=== PATIENT | female | born 1955 | race Caucasian/White ===

== ENCOUNTER → 2019-10-21 11:44 | Outpatient (CLI) | payer OTHER, SELFPAY ==
--- NOTE | 2019-10-21 | DI.MG.S_ITS ---
BILATERAL DIGITAL SCREENING MAMMOGRAM 3D/2D WITH CAD: 10/21/2019 CLINICAL: Routine screening. Comparison is made to exams dated: 10/01/2018 mammogram, 09/19/2017 mammogram, and 09/17/2015 mammogram - [facility]. The tissue of both breasts is heterogeneously dense. This may lower the sensitivity of mammography. Current study was also evaluated with a Computer Aided Detection (CAD) system. There are benign calcifications in the right breast. No significant masses, calcifications, or other findings are seen in either breast. There has been no significant interval change. IMPRESSION: There is no mammographic evidence of malignancy. A 1 year screening mammogram is recommended. This exam was interpreted at Station ID: [id number]. NOTE: For mammograms, a report in lay terms will be sent to the patient. Approximately 15% of breast malignancies will not be visualized mammographically. In the management of a palpable breast mass, a negative mammogram must not discourage biopsy of a clinically suspicious lesion. Electronically Signed By: Jonnathan causey/lizzeth:10/22/2019 10:22:04 letter sent: Normal Exam ACR BI-RADS Category 2: Benign Finding(s) 3342F
== END ==
PROVIDERS: Visit Provider Family Medicine
DX: Z12.31 Encounter for screening mammogram for malignant neoplasm of breast (principal)
CPT/HCPCS: 77063; 77067

== ENCOUNTER → 2020-04-03 10:01 | Outpatient (CLI) | payer OTHER, SELFPAY ==
[2020-04-03 22:28] LABS: COVID19 Sendout Not Detected (Not Detect)
== END ==
PROVIDERS: Visit Provider Nurse Practitioner
DX: Z01.812 Encounter for preprocedural laboratory examination (principal)
CPT/HCPCS: 87635

== ENCOUNTER 2020-04-06 06:36 | Day surgery (SDC) | payer OTHER, SELFPAY ==
[2020-04-06 07:10] VITALS: BMI 22.8
[2020-04-06 07:18] VITALS: BP 123/80; PULSE 75; RESP 12; TEMP 36.3; O2SAT 97
[2020-04-06] MEDS: LACTATED RINGERS 1,000 ML 200 ML IV (07:28)
--- NOTE | 2020-04-06 07:42 | P.HP_ITS ---
History of Present Illness History of Present Illness Date Patient Seen: 04/06/20 Time Patient Seen: 07:42 Date of Onset of Symptoms: 04/06/20 Chief complaint: [id number] Narrative: The patient presents for colorectal sreening. The previous colon oscopy 10 years ago at an outside institution which was normal.. No personal or family history of colon cancer. On further history denies any recent gastrointestinal symptoms. No nausea, vomiting, abdominal pain, loss of appetite, unexplained weight loss, change in bowel habits, diarrhea, constipation, melena, hematochezia, or bright red blood per rectum. 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 (Acute) Bee sting allergy (Acute) Surgical History S/P cholecystectomy (Acute) Family & Social History Social History: household members spouse Tobacco & Substance use: Smoking Status Never smoker alcohol intake current alcohol intake frequency a few times a week Substance Use Type does not use Meds Home Medications and Allergies Home Medications Medication Instructions Recorded Confirmed Type cetirizine [Zyrtec] 10 mg PO DAILY PRN 04/06/20 04/06/20 History conjugated estrogens [Premarin] 1 applic VAGINAL USEASDIRECTD 04/06/20 04/06/20 History ibuprofen 200 mg PO BID 04/06/20 04/06/20 History Allergies Allergy/AdvReac Type Severity Reaction Status Date / Time Penicillins Allergy Intermediate Rash Verified 04/06/20 07:06 Review of Systems Review of Systems Narrative: A 10 point review of systems is negative except as noted in the HPI Exam Vital Signs (past 8 hours): - 04/06/20 07:18 Temperature 97.4 F L Pulse Rate 75 Respiratory Rate 12 Blood Pressure 123/80 Pulse Oximetry 97 Oxygen Delivery Method Room Air Narrative Exam Narrative: General-no acute distress, well nourished HEENT-moist mucous membranes, no scleral icterus Neck-supple, no lymphadenopathy Chest- non labored respirations, clear to auscultation bilaterally Cardiac-regular rate no peripheral edema Abdomen-soft, nontender, non distended Extremities-warm, well perfused Neurological-alert and oriented, no focal deficits Assessment & Plan Assessment and plan (1) Screening for colon cancer: Status: Acute Assessment & Plan narrative: The patient requires colorectal screening and colonoscopy is recommended. Technical details were discussed. Risks, benefits, alternatives explained. Risks including but not limited to myocardial infarction, aspiration, bleeding, pain, missed lesion, incomplete examination, need for further radiographic studies, colonic perforation, and need for major abdominal surgery were discussed. All questions were answered to their satisfaction, and they are in agreement with this plan. COVID-19 COVID-19 status: Negative Result date/Date tested (Pos, Neg/Pending): 04/03/20
[2020-04-06] MEDS: MIDAZOLAM 5 MG/5 ML VIAL IV ×2 (07:50→08:10)
[2020-04-06] MEDS: fentaNYL 250 MCG/5 ML INJ IV ×2 (07:54→08:05)
--- NOTE | 2020-04-06 08:05 | PM.OP.ENDO ---
Operative Date/Time/Diagnoses Date of procedure: 04/06/20 Time of procedure: 08:05 Pre-op diagnosis: Screening colonoscopy Post-op diagnosis: same Procedure & Clinicians Study performed: Colonoscopy Same procedure as scheduled: Yes Indications: 64-year-old female last colonoscopy 10 years ago presents for routine screening. Surgeon: Zeeshan Hubbard Procedure Notes SCOAP/Timeout: Performed Procedure in detail: Patient placed in left lateral decubitus position. Time out was performed. Procedural sedation was administered with Versed and Fentanyl. A rectal exam demonstrated no external hemorrhoids no internal masses. Colonoscopy scope was placed into the rectum and advanced through the colon to the cecum. The ileocecal valve was identified. The scope was then slowly withdrawn examining colon thoroughly in all directions. The colonoscopy was notable for the following 1. Lipoma within the cecum 2. No masses or polyps 3. Quality of prep excellent 4. Grade 1 internal hemorrhoids Scope withdrawal time: 6 Sedation minutes: 20 Findings: other findings (Lipoma cecum) Specimen(s): none sent Complications: none Impression: Normal colonoscopy Post-procedure Recommendations: Colonscopy in 10 years Disposition: same day surgery
[2020-04-06 08:09] VITALS: BP 112/75; PULSE 84; RESP 15; TEMP 36.4; O2SAT 95
[2020-04-06 08:14] VITALS: BP 120/76; PULSE 79; RESP 19; O2SAT 96
[2020-04-06 08:19] VITALS: BP 105/70; PULSE 76; RESP 15; O2SAT 97
[2020-04-06 08:30] VITALS: BP 109/74; PULSE 70; RESP 18; TEMP 36.6; O2SAT 97
== END 2020-04-06 08:37 | disposition home or self-care (01) ==
PROVIDERS: Referring Provider Surgery; Visit Provider Surgery
PROC: 0DJD8ZZ Inspection of Lower Intestinal Tract, Via Natural or Artificial Opening Endoscopic (ICD-10-PCS; CPT 45378; principal; 2020-04-06 07:45)
DX: Z11.59 Encounter for screening for other viral diseases (principal); K64.0 First degree hemorrhoids; D17.79 Benign lipomatous neoplasm of other sites
CPT/HCPCS: 45378; 99152; J2250; J3010

== ENCOUNTER → 2020-10-22 10:18 | Outpatient (CLI) | payer OTHER, SELFPAY ==
--- NOTE | 2020-10-22 | DI.MG.S_ITS ---
BILATERAL DIGITAL SCREENING MAMMOGRAM 3D/2D WITH CAD: 10/22/2020 CLINICAL: Routine screening. Comparison is made to exams dated: 10/21/2019 mammogram - [facility], 10/01/2018 mammogram, and 09/19/2017 mammogram - [facility]. The tissue of both breasts is heterogeneously dense. This may lower the sensitivity of mammography. Current study was also evaluated with a Computer Aided Detection (CAD) system. There are benign calcifications in the right breast. No significant masses, calcifications, or other findings are seen in either breast. There has been no significant interval change. IMPRESSION: BENIGN There is no mammographic evidence of malignancy. A 1 year screening mammogram is recommended. This exam was interpreted at Station ID: [id number]. NOTE: For mammograms, a report in lay terms will be sent to the patient. Approximately 15% of breast malignancies will not be visualized mammographically. In the management of a palpable breast mass, a negative mammogram must not discourage biopsy of a clinically suspicious lesion. Electronically Signed By: Norman hathaway/lizzeth:10/22/2020 10:44:15 letter sent: Normal Exam ACR BI-RADS Category 2: Benign Finding(s) 3342F
== END ==
PROVIDERS: PCP Family Medicine; Referring Provider Family Medicine; Visit Provider Family Medicine
DX: Z12.31 Encounter for screening mammogram for malignant neoplasm of breast (principal)
CPT/HCPCS: 77063; 77067

== ENCOUNTER → 2021-03-15 11:19 | Outpatient (CLI) | payer OTHER, SELFPAY | PROVIDERS: PCP Family Medicine; Referring Provider Registered Nurse; Visit Provider Registered Nurse | DX: Z13.820 Encounter for screening for osteoporosis (principal); M85.88 Other specified disorders of bone density and structure, other site; Z78.0 Asymptomatic menopausal state | CPT/HCPCS: 77080 ==

== ENCOUNTER → 2021-12-28 16:30 | Outpatient (CLI) | payer MEDICARE, OTHER, SELFPAY ==
--- NOTE | 2021-12-28 | DI.MG.S_ITS ---
BILATERAL DIGITAL SCREENING MAMMOGRAM 3D/2D WITH CAD: 12/28/2021 CLINICAL: Routine screening. Comparison is made to exams dated: 10/22/2020 mammogram, 10/21/2019 mammogram - [facility], 10/01/2018 mammogram, 09/19/2017 mammogram, and 09/17/2015 mammogram - [facility]. The tissue of both breasts is heterogeneously dense. This may lower the sensitivity of mammography. Current study was also evaluated with a Computer Aided Detection (CAD) system. There are benign calcifications in the right breast. No significant masses, calcifications, or other findings are seen in either breast. There has been no significant interval change. IMPRESSION: BENIGN There is no mammographic evidence of malignancy. A 1 year screening mammogram is recommended. This exam was interpreted at Station ID: [id number]. NOTE: For mammograms, a report in lay terms will be sent to the patient. Approximately 15% of breast malignancies will not be visualized mammographically. In the management of a palpable breast mass, a negative mammogram must not discourage biopsy of a clinically suspicious lesion. Electronically Signed By: Ernesto villa/lizzeth:12/29/2021 12:37:20 letter sent: Normal Exam ACR BI-RADS Category 2: Benign Finding(s) 3342F
== END ==
PROVIDERS: PCP Family Medicine; Referring Provider Family Medicine; Visit Provider Family Medicine
DX: Z12.31 Encounter for screening mammogram for malignant neoplasm of breast (principal)
CPT/HCPCS: 77063; 77067

== ENCOUNTER → 2023-01-02 10:23 | Outpatient (CLI) | payer MEDICARE, OTHER, SELFPAY ==
--- NOTE | 2023-01-02 | DI.MG.S_ITS ---
BILATERAL DIGITAL SCREENING MAMMOGRAM 3D/2D WITH CAD: 01/02/2023 CLINICAL: Routine screening. Comparison is made to exams dated: 12/28/2021 mammogram, 10/22/2020 mammogram, 10/21/2019 mammogram - [facility], 10/01/2018 mammogram, and 09/19/2017 mammogram - [facility]. Both breasts are heterogeneously dense, which may obscure small masses (category c / 51-75% glandular tissue). Current study was also evaluated with a Computer Aided Detection (CAD) system. There are benign calcifications in the right breast. No significant masses, calcifications, or other findings are seen in either breast. There has been no significant interval change. IMPRESSION: BENIGN There is no mammographic evidence of malignancy. A 1 year screening mammogram is recommended. Based on the Tyrer Cuzick model (a risk assessment model) the patient's lifetime risk is 9.7% and her 10 year risk is 4.9%. According to the ACR, ACS, and NCCN guidelines, an annual breast MRI exam along with mammogram is recommended if the patient's lifetime risk is 20% or greater. This exam was interpreted at Station ID: [id number]. NOTE: For mammograms, a report in lay terms will be sent to the patient. Approximately 15% of breast malignancies will not be visualized mammographically. In the management of a palpable breast mass, a negative mammogram must not discourage biopsy of a clinically suspicious lesion. Electronically Signed By: Ernesto villa/lizzeth:01/02/2023 10:50:51 letter sent: Normal Exam ACR BI-RADS Category 2: Benign Finding(s) 3342F
== END ==
PROVIDERS: PCP Family Medicine; Referring Provider Family Medicine; Visit Provider Family Medicine
DX: Z12.31 Encounter for screening mammogram for malignant neoplasm of breast (principal)
CPT/HCPCS: 77063; 77067

== ENCOUNTER 2023-10-24 20:13 | Emergency (ER) | payer MEDICARE, OTHER, SELFPAY ==
[2023-10-24 20:27] VITALS: BP 183/88; PULSE 70; RESP 16; TEMP 37.1; O2SAT 99
--- NOTE | 2023-10-24 20:44 | ED.BACK ---
HPI - Back Pain/Injury General Chief Complaint: Back Pain/Injury Stated Complaint: lower back pain with shooting pains and numbness Time Seen by Provider: 10/24/23 20:35 Source: patient History of Present Illness HPI Narrative: Patient is a 67-year-old female. Has had right-sided lower back discomfort with radiculopathy for several weeks. No specific injury. Actually saw Orthopedic surgery this morning for the 1st time. Was prescribed gabapentin. She is taken 2 doses of this. The plan after her visit this morning would be for physical therapy. If she did not improve with physical therapy and medications then there would be discussion about MRI and injections. Patient states that after she got home from this visit she started have increasing pain in her right hip radiating down to the outside of the front of her right leg. No fevers. No urinary symptoms. No change in bowel habits. She has taken Advil for her discomfort up to this point. Related Data Home Medications Medication Instructions Recorded Confirmed cetirizine 10 mg capsule (Zyrtec) 10 mg PO DAILY PRN Allergic 04/06/20 04/06/20 Symptoms conjugated estrogens 0.625 mg/gram 1 applic vaginal USEASDIRECTD 04/06/20 04/06/20 vaginal cream (Premarin) ibuprofen 200 mg capsule 200 mg PO BID 04/06/20 04/06/20 Previous Rx's Medication Instructions Recorded cyclobenzaprine 10 mg tablet 10 mg PO TID PRN muscle spasm #10 10/24/23 tabs hydrocodone 5 mg-acetaminophen 325 1 tab PO Q4-6H PRN pain #10 tabs 10/24/23 mg tablet methylprednisolone 4 mg tablets in See Rx Instructions PO .COMPLEX 10/24/23 a dose pack (Medrol (Fabrizio)) #21 ea Allergies Allergy/AdvReac Type Severity Reaction Status Date / Time Penicillins Allergy Intermediate Rash Verified 04/06/20 07:06 Review of Systems Constitutional Constitutional: Reports system reviewed and no additional complaints, except as documented Musculoskeletal Musculoskeletal: Reports system reviewed and no additional complaints, except as documented Integumentary/Breasts Skin/Breast: Reports system reviewed and no additional complaints, except as documented Neurologic Neurologic: Reports system reviewed and no additional complaints, except as documented Hematologic/Lymphatic On Anticoagulants: No Patient History Medical History Bee sting allergy 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 Surgical History S/P cholecystectomy Social History household members: spouse Smoking Status: Never smoker alcohol intake: current Smoking Status: Never smoker alcohol intake frequency: a few times a week Substance Use Type: does not use Exam Initial Vital Signs Initial Vital Signs: Vital Signs Temperature 98.7 F 10/24/23 20:27 Pulse Rate 70 10/24/23 20:27 Respiratory Rate 16 10/24/23 20:27 Blood Pressure 183/88 H 10/24/23 20:27 Pulse Oximetry 99 10/24/23 20:27 Oxygen Delivery Method Room Air 10/24/23 20:27 HENOH Head: normal to inspection and normocephalic Back/Spine/Pelvis Thoracic/Lumbar Spine: No paraspinal tenderness, No thoracic spinal tenderness and No lumbar spinal tenderness Skin General: no rashes or lesions noted Neuro General: patient alert and patient awake Extrem General: normal to inspection Course Orders Ordered: Discontinued Medications Hydrocodone Bitart/Acetaminophen (Hydrocodone/Acet 5/325 Prepack) 1 bottle MISC DIRECTED ONE Stop: 10/24/23 21:49 Last Admin: 10/24/23 22:02 Dose: 1 bottle Documented By: DOMINIQUE Hydromorphone HCl (Hydromorphone 1 Mg Inj) 1 mg IM NOW ONE Stop: 10/24/23 20:51 Last Admin: 10/24/23 20:57 Dose: 1 mg Documented By: DOMINIQUE Ketorolac Tromethamine (Ketorolac 30 Mg/Ml Vial) 30 mg IM NOW ONE Stop: 10/24/23 20:51 Last Admin: 10/24/23 20:57 Dose: 30 mg Documented By: DOMINIQUE Ondansetron HCl (Ondansetron 4 Mg Odt Prepack) 1 bottle MISC DIRECTED ONE Stop: 10/24/23 21:49 Last Admin: 10/24/23 22:02 Dose: 1 bottle Documented By: DOMINIQUE Prednisone (Prednisone 20 Mg Tablet) 20 mg PO NOW ONE Stop: 10/24/23 20:51 Last Admin: 10/24/23 20:57 Dose: 20 mg Documented By: DOMINIQUE Vital Signs Vital signs: Vital Signs - 8 hr 10/24/23 20:27 10/24/23 22:06 Temperature 98.7 F Pulse Rate 70 73 Respiratory Rate 16 18 Blood Pressure 183/88 H 110/57 L Pulse Oximetry 99 97 Oxygen Delivery Method Room Air Room Air MDM - Back Pain/Injury MDM Narrative Medical decision making narrative: She was very little discomfort with palpation of her lower spine and SI joint however it is with movement that she was getting quite a bit of discomfort. No fevers. No urinary changes or bowel changes. She is under the care of Orthopedic surgery. There has been no new trauma. There was no indication for emergent radiologic studies. She had x-rays earlier today. Will send home with a prescription for pain medication. Put on steroids for the next couple days as well. Will send home with muscle relaxers although I am not convinced that this is a muscle spasm issue in that she was instructed to just stop taking this medication if her symptoms are not improving with it. She did feel somewhat better after medications here in the ER. She was given return precautions. She expressed understanding and agreement. Discharge Plan Departure Patient Disposition: Home Clinical Impression: Low back pain Instructions: DI for Low Back Pain Activity Restrictions/Additional Instructions: Recommend that you continue to follow all of the instructions given to you by the orthopedic surgeon that you saw earlier today. Continue with the gabapentin. Take the pain medication in the muscle relaxers as needed. Take the steroids as directed. Return to emergency department for new symptoms. Prescriptions: New hydrocodone-acetaminophen 5-325 mg tablet 1 tab PO Q4-6H PRN (Reason: pain) Qty: 10 0RF methylprednisolone [Medrol (Fabrizio)] 4 mg tablets,dose pack See Rx Instructions .ROUTE .COMPLEX Qty: 21 0RF Rx Instructions: orally per package directions cyclobenzaprine 10 mg tablet 10 mg PO TID PRN (Reason: muscle spasm) Qty: 10 0RF No Action ibuprofen 200 mg Capsule 200 mg PO BID Premarin 0.625 mg/gram Cream 1 applic VAGINAL USEASDIRECTD Rx Instructions: 1 gm monday and monday Zyrtec 10 mg Capsule 10 mg PO DAILY PRN (Reason: Allergic Symptoms) Referrals: Kathrin Maurice MD [Primary Care Provider] - Stand Alone Forms: Patient Portal/API
[2023-10-24] MEDS: predniSONE 20 MG TABLET PO (20:57)
[2023-10-24] MEDS: HYDROMORPHONE 1 MG INJ IM (20:57)
[2023-10-24] MEDS: KETOROLAC 30 MG/ML VIAL IM (20:57)
[2023-10-24] MEDS: ONDANSETRON 4 MG ODT PREPACK 1 BOTTLE MISC (22:02)
[2023-10-24] MEDS: HYDROCODONE/ACET 5/325 PREPACK 1 BOTTLE MISC (22:02)
[2023-10-24 22:06] VITALS: BP 110/57; PULSE 73; RESP 18; O2SAT 97
== END 2023-10-24 22:08 | disposition home or self-care (01) ==
PROVIDERS: Emergency Provider Emergency Medicine; PCP Family Medicine
DX: M54.50 Low back pain, unspecified (principal)
CPT/HCPCS: 96372; 99283; J1170; J1885

== ENCOUNTER → 2023-10-29 09:08 | Outpatient (CLI) | payer MEDICARE, OTHER, SELFPAY ==
--- NOTE | 2023-10-29 09:09 | DI.MRI.S_ITS ---
PROCEDURE: MR LUMBAR SPINE WO CON INDICATIONS: Radiculopathy, lumbar region TECHNIQUE: Noncontrast sagittal T1 spin echo and T2 fast echo, sagittal STIR, and T2 fast spin echo through the lumbar spine. In cases with scoliosis, additional coronal T2 fast spin echo may be performed. COMPARISON: [facility] [place], CR, XR LUMBAR SPINE 2 OR 3 VIEWS, 10/24/2023, 11:56. FINDINGS: Image quality: Excellent. Alignment and Curvature: Trace retrolisthesis of L2 on L3, L3 on L4, and L4 on L5. Bone Marrow: Marrow is of normal overall signal. No acute vertebral body compression fractures. Spinal Cord: Conus medullaris terminates at the L1 level. Visualized cord demonstrates normal signal and size. Paraspinous Soft Tissues: No paravertebral masses. T12-L1: Normal appearance. L1-L2: Normal appearance. L2-L3: Disc bulge. Facet hypertrophy. No canal stenosis or foraminal stenosis. L3-L4: Severe disc height loss. Disc bulge. Trace retrolisthesis of L3 on L4. Mild canal stenosis. Mild bilateral foraminal stenosis. L4-L5: Severe disc height loss. Trace retrolisthesis of L4 on L5. Disc bulge. Facet hypertrophy. Mild canal stenosis. [id number] bilateral foraminal narrowing. L5-S1: Disc bulge. Facet hypertrophy. No canal stenosis or significant foraminal stenosis. IMPRESSION: 1 period there is underlying multilevel facet arthropathy. 2. Canal stenosis is mild at L3-L4 and L4-L5. 3. [id number] bilateral foraminal narrowing at L4-L5. Dictated by: Jensen Welch M.D. on 10/30/2023 at 16:14 Approved by: Jensen Welch M.D. on 10/30/2023 at 16:19
== END ==
LOC: MRI 09:09
PROVIDERS: PCP Family Medicine; Referring Provider Physical Medicine & Rehabilitation; Visit Provider Physical Medicine & Rehabilitation
DX: M47.26 Other spondylosis with radiculopathy, lumbar region (principal); M47.27 Other spondylosis with radiculopathy, lumbosacral region; M48.061 Spinal stenosis, lumbar region without neurogenic claudication
CPT/HCPCS: 72148

== ENCOUNTER → 2024-01-04 08:27 | Outpatient (CLI) | payer MEDICARE, OTHER, SELFPAY ==
--- NOTE | 2024-01-04 08:29 | DI.MG.S_ITS ---
BILATERAL DIGITAL SCREENING MAMMOGRAM 3D/2D WITH CAD: 01/04/2024 CLINICAL: Routine screening. Comparison is made to exams dated: 01/02/2023 mammogram, 10/22/2020 mammogram, and 12/28/2021 mammogram - [facility]. Both breasts are heterogeneously dense, which may obscure small masses (category c / 51-75% glandular tissue). Current study was also evaluated with a Computer Aided Detection (CAD) system. There is an asymmetry in the right breast middle depth lateral region seen on the craniocaudal view only. No other significant masses, calcifications, or other findings are seen in either breast. IMPRESSION: INCOMPLETE: NEEDS ADDITIONAL IMAGING EVALUATION The asymmetry in the right breast is indeterminate. Additional views with possible ultrasound are recommended. Based on the Tyrer Cuzick model (a risk assessment model) the patient's lifetime risk is 9.3% and her 10 year risk is 4.9%. According to the ACR, ACS, and NCCN guidelines, an annual breast MRI exam along with mammogram is recommended if the patient's lifetime risk is 20% or greater. This exam was interpreted at Station ID: [id number]. NOTE: For mammograms, a report in lay terms will be sent to the patient. Approximately 15% of breast malignancies will not be visualized mammographically. In the management of a palpable breast mass, a negative mammogram must not discourage biopsy of a clinically suspicious lesion. Electronically Signed By: Shmuel valentin/lizzeth:01/04/2024 12:09:36 letter sent: Additional Imaging Needed ACR BI-RADS Category 0: Incomplete 3340F
== END ==
PROVIDERS: PCP Family Medicine; Referring Provider Family Medicine; Visit Provider Family Medicine
DX: Z12.31 Encounter for screening mammogram for malignant neoplasm of breast (principal); R92.333 Mammographic heterogeneous density, bilateral breasts
CPT/HCPCS: 77063; 77067

== ENCOUNTER → 2024-02-02 08:41 | Outpatient (CLI) | payer MEDICARE, OTHER, SELFPAY ==
--- NOTE | 2024-02-02 08:43 | DI.MG.S_ITS ---
UNILATERAL RIGHT DIGITAL DIAGNOSTIC MAMMOGRAM 3D/2D WITH ADDITIONAL VIEWS: 02/02/2024 CLINICAL: Additional evaluation requested from prior study. Comparison is made to exams dated: 01/04/2024 mammogram, 01/02/2023 mammogram, and 12/28/2021 mammogram - [facility]. The right breast is heterogeneously dense, which may obscure small masses (category c / 51-75% glandular tissue). There is a possible focal asymmetry in the right breast at 11 o'clock middle depth. No other significant masses or calcifications are seen in the breast. IMPRESSION: INCOMPLETE: NEEDS ADDITIONAL IMAGING EVALUATION The possible focal asymmetry in the right breast is indeterminate. An ultrasound is recommended. Based on the Tyrer Cuzick model (a risk assessment model) the patient's lifetime risk is 9.3% and her 10 year risk is 4.9%. According to the ACR, ACS, and NCCN guidelines, an annual breast MRI exam along with mammogram is recommended if the patient's lifetime risk is 20% or greater. This exam was interpreted at Station ID: [id number]. NOTE: For mammograms, a report in lay terms will be sent to the patient. Approximately 15% of breast malignancies will not be visualized mammographically. In the management of a palpable breast mass, a negative mammogram must not discourage biopsy of a clinically suspicious lesion. Electronically Signed By: Shmuel Jimenez M.D. lc/:02/02/2024 09:51:09 ACR BI-RADS Category 0: Incomplete 3340F
--- NOTE | 2024-02-02 08:43 | DI.US.S_ITS ---
LIMITED ULTRASOUND OF RIGHT BREAST: 02/02/2024 CLINICAL: Patient returns today to evaluate a focal asymmetry in the right breast. Comparison is made to exams dated: 02/02/2024 mammogram, 01/04/2024 mammogram, 01/02/2023 mammogram, 12/28/2021 mammogram, 10/22/2020 mammogram, and 10/21/2019 mammogram - [facility]. Color flow and real-time ultrasound of the right breast 10-12 o'clock region were performed. Salgado scale images of the real-time examination were reviewed. There is a possible 0.3 cm x 0.2 cm x 0.2 cm x 4 cm round complicated cyst in the right breast at 11 o'clock posterior depth. IMPRESSION: PROBABLY BENIGN The possible 0.3 cm x 0.2 cm x 0.2 cm x 4 cm round complicated cyst in the right breast is probably benign. This may be incidental. A follow-up mammogram and an ultrasound in 6 months is recommended to demonstrate stability of this finding and the mammographic focal asymmetry. This exam was interpreted at Station ID: [id number]. Electronically Signed By: Shmuel valentin/:02/02/2024 09:55:28 letter sent: Followup Recommended Ultrasound BI-RADS: 3 Probably benign
== END ==
LOC: MAMMO 08:42
PROVIDERS: PCP Family Medicine; Referring Provider Family Medicine; Visit Provider Family Medicine
DX: R92.8 Other abnormal and inconclusive findings on diagnostic imaging of breast (principal); N64.89 Other specified disorders of breast
CPT/HCPCS: 76642; 77065; G0279

== ENCOUNTER → 2024-03-20 10:06 | Outpatient (CLI) | payer MEDICARE, OTHER, SELFPAY ==
--- NOTE | 2024-03-20 10:07 | DI.RAD.S_ITS ---
PROCEDURE: XR DEXA AXIAL SKELETON INDICATIONS: Osteopenia COMPARISON: [facility], CR, XR DEXA AXIAL SKELETON, 03/15/2021, 11:48. FINDINGS: Lumbar Spine: Bone mineral density 0.828 g/cm2, T score -1.4. Left Hip: Bone mineral density 0.857 g/cm2, T score -0.7. Left Femoral Neck: Bone mineral density 0.697 g/cm2, T score -1.4. Right Hip: Bone mineral density 0.890 g/cm2, T score -0.4. Right Femoral Neck: Bone mineral density 0.722 g/cm2, T score -1.1. Fracture Risk Calculation (when applicable): 10-year fracture risk of a major osteoporotic fracture without prior fracture, 10% and with prior fracture, 17% and of a hip fracture without prior fracture 1.2%, with prior fracture 1.9%. (T score greater or equal to -1.0 to: NORMAL) (T score from -1.1 to -2.4: OSTEOPENIA) (T score less than or equal to -2.5: OSTEOPOROSIS) IMPRESSION: 1. Osteopenia of the lumbar spine and the bilateral hips. Follow-up guidelines as follows: Osteoporosis: Consider a repeat DEXA and Vertebral Fracture Assessment (VFA) exam in 2 years or sooner if medically necessary, to reassess this patient's status. Osteopenia: Consider a repeat DEXA in 2-3 years to reassess this patient's status, or if there is a new clinical indication. Normal: Consider a repeat DEXA in 5 years or sooner, or if there is a new clinical indication. All treatment decisions require clinical judgment and consideration of individual patient factors, including patient preferences, comorbidities, previous drug use, risk factors not captured in the FRAX model (e.g., frailty, falls, vitamin D deficiency, increased bone turnover, interval significant decline in bone density ) and possible under- or over-estimation of fracture risk by FRAX. In addition, the NOF Guide recommends that FDA-approved medical therapies be considered in postmenopausal women and men age >= 50 years with a: * Hip or vertebral (clinical or morphometric) fracture * T-score of <=-2.5 at the spine or hip * Ten-year fracture probability by FRAX of >= 3% for hip fracture or >=20% for major osteoporotic fracture. People with diagnosed cases of osteoporosis or at high risk for fracture should have regular bone mineral density tests. For patients eligible for Medicare, routine testing is allowed once every 2 years. The testing frequency can be increased to one year for patients who have rapidly progressing disease, those who are receiving or discontinuing medical therapy to restore bone mass, or have additional risk factors. Dictated by: Meggan Melendez M.D. on 03/20/2024 at 11:54 Approved by: Meggan Melendez M.D. on 03/20/2024 at 11:56
== END ==
PROVIDERS: PCP Family Medicine; Referring Provider Family Medicine; Visit Provider Family Medicine
DX: M85.89 Other specified disorders of bone density and structure, multiple sites
CPT/HCPCS: 77080

== ENCOUNTER → 2024-04-16 07:09 | Outpatient (CLI) | payer MEDICARE, OTHER, SELFPAY ==
[2024-04-16 08:59] LABS: Alanine Aminotransferase 24 IU/L (<35); Albumin 4.6 g/dL (3.5-5.0); Albumin Globulin Ratio 1.6 (1.0-2.8); Alkaline Phosphatase 67 U/L (38-126); Aspartate Aminotransferase 23 IU/L (14-36); Bilirubin Total 0.5 mg/dL (0.2-1.3); Blood Urea Nitrogen 20 mg/dL (7-17); Calcium 10.4 mg/dL (8.4-10.2); Carbon Dioxide 29 mmol/L (22-32); Chloride 105 mmol/L (98-107); Cholesterol 260 mg/dL (140-199); Estimated Glomerular Filt Rate > 60 mL/min (>60); Globulin 2.9 g/dL (1.7-4.1); Glucose 91 mg/dL (80-110); Potassium 4.5 mmol/L (3.4-5.1); Sodium 138 mmol/L (137-145); Total Protein 7.5 g/dL (6.3-8.2); Triglycerides 116 mg/dL (35-150)
[2024-04-16 09:06] LABS: Add Manual Diff / Slide Review NO; Basophils Absolute Auto 0 /uL (0-100); Basophils Percent Auto 0.5 % (0-2); Eosinophils Absolute Auto 100 /uL (0-450); HDL Cholesterol 108 mg/dL (40-60); HEMOLYSIS < 15 (0-50); Hematocrit 41.6 % (36-46); Hemoglobin 14.1 g/dL (12.0-16.0); LDL Cholesterol Calculated 129 mg/dL (<100); Lymphocytes Absolute Auto 2400 /uL (1100-4500); Lymphocytes Percent Auto 46.1 % (25-40); Mean Corpuscular Hemoglobin 32.9 PG (26-34); Mean Corpuscular Volume 96.7 fL (80-100); Monocytes Absolute Auto 300 /uL (0-900); Monocytes Percent Auto 6.5 % (3-14); Neutrophils Absolute Auto 2300 /uL (1500-7000); Neutrophils Percent Auto 44.9 % (50-75); Platelet Count 254 X10^3/uL (150-400); Red Cell Distribution Width 12.9 % (11.6-14.8); White Blood Cell Count 5.2 X10^3/uL (4.5-11.0)
== END ==
PROVIDERS: PCP Family Medicine; Referring Provider Family Medicine; Visit Provider Family Medicine
DX: E78.00 Pure hypercholesterolemia, unspecified (principal); Z13.6 Encounter for screening for cardiovascular disorders
CPT/HCPCS: 36415; 80053; 80061; 85025

== ENCOUNTER → 2024-06-12 07:02 | Outpatient (CLI) | payer MEDICARE, OTHER, SELFPAY ==
[2024-06-12 09:39] LABS: BUN Creatinine Ratio 28.2 (6-22); Blood Urea Nitrogen 20 mg/dL (7-17); Calcium 10.2 mg/dL (8.4-10.2); Carbon Dioxide 28 mmol/L (22-32); Chloride 104 mmol/L (98-107); Estimated Glomerular Filt Rate > 60 mL/min (>60); Glucose 80 mg/dL (80-110); HEMOLYSIS < 15 (0-50); Potassium 4.1 mmol/L (3.4-5.1); Sodium 140 mmol/L (137-145)
[2024-06-13 21:51] LABS: HIV 1 & 2 Ab/Ag 4th Gen Combo NEGATIVE (NEGATIVE); Hep C Virus Ab w/Reflex Quant NEGATIVE s/c (NEGATIVE)
== END ==
PROVIDERS: PCP Family Medicine; Referring Provider Family Medicine; Visit Provider Family Medicine
DX: Z13.9 Encounter for screening, unspecified (principal); E78.00 Pure hypercholesterolemia, unspecified
CPT/HCPCS: 36415; 80048; 86803; 87389

== ENCOUNTER → 2024-08-05 | Outpatient (CLI) | payer MEDICARE, OTHER, SELFPAY ==
--- NOTE | 2024-08-05 | DI.MG.S_ITS ---
UNILATERAL RIGHT DIGITAL DIAGNOSTIC MAMMOGRAM 3D/2D SHORT-TERM FOLLOW-UP: 08/05/2024 CLINICAL: Patient returns for a 6 month follow up of the right breast. Comparison is made to exams dated: 02/02/2024 mammogram, 01/04/2024 mammogram, and 01/02/2023 mammogram - [facility]. The breasts are heterogeneously dense, which may obscure small masses (category c / 51-75% glandular tissue). The previously described focal asymmetry in the right breast at 11 o'clock middle depth is less prominent compared to prior. No other significant masses or calcifications are seen in the breast. IMPRESSION: INCOMPLETE: NEED ADDITIONAL IMAGING EVALUATION Right breast focal asymmetry at 11 o'clock, less prominent compared to prior. An ultrasound is recommended for further evaluation and is scheduled to immediately follow this examination. Based on the Tyrer Cuzick model (a risk assessment model) the patient's lifetime risk is 9.3% and her 10 year risk is 4.9%. According to the ACR, ACS, and NCCN guidelines, an annual breast MRI exam along with mammogram is recommended if the patient's lifetime risk is 20% or greater. This exam was interpreted at Station ID: [id number]. NOTE: For mammograms, a report in lay terms will be sent to the patient. Approximately 15% of breast malignancies will not be visualized mammographically. In the management of a palpable breast mass, a negative mammogram must not discourage biopsy of a clinically suspicious lesion. Electronically Signed By: Heidi Pennington M.D., Ph.D. eb/:08/11/2024 22:45:46 letter sent: Additional Imaging Needed ACR BI-RADS Category 0: Incomplete: Need Additional Imaging Evaluation
--- NOTE | 2024-08-05 08:42 | DI.US.S_ITS ---
LIMITED ULTRASOUND OF RIGHT BREAST: 08/05/2024 CLINICAL: 6 month follow-up of cysts. Comparison is made to exams dated: 08/05/2024 mammogram, 02/02/2024 ultrasound, 02/02/2024 mammogram, 01/04/2024 mammogram, 01/02/2023 mammogram, and 12/28/2021 mammogram - [facility]. Real-time ultrasound of the right breast 11 o'clock region was performed. Salgado scale images of the real-time examination were reviewed. The previously seen possible complicated cyst at 11 o'clock, 4 cm from the nipple is no longer visualized consistent with decreased prominence of mammographic finding. No sonographic abnormality is visualized. IMPRESSION: NEGATIVE No mammographic or sonographic evidence of malignancy. Return to annual mammogram screening schedule is recommended (due December 2024). Findings and recommendations were conveyed to the patient during today's evaluation. This exam was interpreted at Station ID: [id number]. Electronically Signed By: Heidi Pennington M.D., Ph.D. eb/:08/11/2024 22:55:09 letter sent: Normal Exam ACR BI-RADS Category 1: Negative
== END ==
LOC: MAMMO 08:42
PROVIDERS: PCP Family Medicine; Referring Provider Family Medicine; Visit Provider Family Medicine
DX: R92.8 Other abnormal and inconclusive findings on diagnostic imaging of breast (principal); R92.333 Mammographic heterogeneous density, bilateral breasts
CPT/HCPCS: 76642; 77065; G0279

== ENCOUNTER → 2025-01-21 16:42 | Outpatient (CLI) | payer MEDICARE, OTHER, SELFPAY ==
--- NOTE | 2025-01-21 16:44 | DI.MG.S_ITS ---
MM screening mammo BI: 01/21/2025. BI-RADS: 1 CLINICAL: 69-year old female for bilateral screening mammogram. Tyrer-Cuzick lifetime risk of 7.1%. No personal or first-degree family history of breast cancer. PRIOR EXAMS 08/05/2024, 02/02/2024, 01/04/2024, 01/02/2023, 12/28/2021, 10/22/2020, 10/21/2019. MAMMOGRAPHY TECHNIQUE: 2D and 3D (tomosynthesis) digital mammographic views obtained, with additional images as needed for full coverage. Current study was also evaluated with a Computer Aided Detection (CAD) system. DENSITY C. The breasts are heterogeneously dense, which may obscure small masses. MAMMOGRAPHY FINDINGS Bilateral: No suspicious mass, asymmetry, microcalcification, or other abnormality seen. IMPRESSION: * No evidence of malignancy. RECOMMENDATIONS Bilateral * Annual screening mammography. OVERALL ASSESSMENT CATEGORY BI-RADS-1: Negative. The [employer] recommends annual screening mammography beginning at age 40 for women with average risk of breast cancer. ELECTRONICALLY SIGNED: Heidi Pennington M.D. on 01/22/2025 at 04:48:39 PM PT Interpreting Station ID: [id number]
== END ==
PROVIDERS: PCP Family Medicine; Referring Provider Family Medicine; Visit Provider Family Medicine
DX: Z12.31 Encounter for screening mammogram for malignant neoplasm of breast (principal); R92.333 Mammographic heterogeneous density, bilateral breasts
CPT/HCPCS: 77063; 77067